=== PATIENT | male | born 1975 | race African-American/Black ===

== ENCOUNTER 2024-11-01 22:54 | Emergency (ER) | payer MEDICAID, OTHER ==
[~2024-11-01] VITALS: Ht 179.1 cm; Wt 77.6 kg
[2024-11-01 22:59] VITALS: O2SAT 97
[2024-11-02] MEDS: TETANUS, DIPHTHERIA, PERTUSSIS VAC/PF 0.5ML (>10YR OLD) IM ONE (00:34)
[2024-11-02] MEDS: KETOROLAC 15MG/ML VIAL IM ONE (00:36)
[2024-11-02] MEDS: LIDOCAINE HCL 1% 20ML VIAL INFIL ONE (00:36)
[2024-11-02] MEDS ORDERED: CEPH500C2 MT (01:25)
[2024-11-02] MEDS ORDERED: SULF1TAB48 MT (01:25)
[2024-11-02 01:39] VITALS: BP 135/82; PULSE 94; RESP 18; TEMP 37.1; O2SAT 97
== END 2024-11-02 01:40 | disposition home or self-care (01) ==
LOC: ER 22:54
DX: S21.251A Open bite of right back wall of thorax without penetration into thoracic cavity, initial encounter (principal); F12.90 Cannabis use, unspecified, uncomplicated; W57.XXXA Bitten or stung by nonvenomous insect and other nonvenomous arthropods, initial encounter; Y93.89 Activity, other specified; Y92.89 Other specified places as the place of occurrence of the external cause; Y99.8 Other external cause status
CPT/HCPCS: 10060; 99284; 90715; 90471; 96372; J1885; J2003; Z7610